=== PATIENT | female | born 2005 | race Caucasian/White ===

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

== ENCOUNTER 2024-07-07 19:55 | Emergency (ER) | payer SELFPAY ==
[2024-07-07 19:56] VITALS: BP 156/92; PULSE 96; RESP 18; TEMP 36.8; O2SAT 99; BMI 38.0
--- NOTE | 2024-07-07 20:19 | ED_ITS ---
<Statement entered by Kingsley Dumont MD - 07/07/24 23:06> I was consulted by the ANTWON, and we discussed the complexity of the problems being addressed. I approved the treatment and management plan for this patient's care in the emergency department, thus performing a substantive portion of the medical decision making. Kingsley Dumont MD Discharge Plan Disposition Patient Disposition: Home, Self-Care Prescriptions Prescriptions: New lidocaine 5 % adhesive patch,medicated 1 patch topical DAILY Qty: 30 0RF Rx Instructions: leave on most painful area for up to 12 hrs methocarbamol 750 mg tablet 750 mg PO Q6H PRN (Reason: muscle spasm) Qty: 20 0RF prednisone 50 mg tablet 50 mg PO DAILY 5 Days Qty: 5 0RF No Action citalopram [Celexa] 10 mg tablet 10 mg PO DAILY Qty: 30 2RF hydroxyzine HCl 10 mg tablet 10 mg PO TID PRN (Reason: anxiety) Qty: 30 0RF ondansetron 4 mg tablet,disintegrating 4 mg PO Q8H PRN (Reason: nausea and vomiting) Qty: 20 0RF Referrals Follow up/Referrals: Avinash Silva DO [Staff Physician] - See instructions Spencer Carbajal MD [Primary Care Provider] - See instructions Activity Restrictions/Add. Instructions Additional Instructions/Restrictions: Referred you to orthopedics for further evaluation of your left shoulder. Please return to the Emergency Department for any worsening signs or symptoms. Please follow-up with your PCP as scheduled. Clinical Impressions Clinical Impression: Arthralgia of left shoulder region Print Language Print Language: Icelandic Discharge ED Provider: Kingsley Dumont General Adult HPI General Chief complaint: Extremity Injury, Upper Stated complaint: Left shoulder pain,no injury Time Seen by Provider: 07/07/24 19:59 Mode of Arrival: Ambulatory Source of Information: Patient Limitations: No Limitations Description of Symptoms (Recalled from ER Triage Doc. by RN): Patient presents to ED with left shoulder pain that started last sunday. Patient denies any injury. Patient rates pain 7/10 at this time and has not taken any medication today for pain. History of Present Illness HPI narrative: Patient presents for evaluation of 5 days of left shoulder pain . Patient states she woke up last Sunday with pain in the area of her left shoulder. Patient actually indicates an area in the trapezius muscle and over the clavicle not actually at the shoulder joint itself. She states that it is been present ever since comes and goes and is usually worse in the morning better in the afternoon. She denies any repetitive tasks and denies trauma. Related Data Previous Rx's ?Medication ?Instructions ?Recorded citalopram 10 mg tablet (Celexa) 10 mg PO DAILY #30 tabs 10/02/23 hydroxyzine HCl 10 mg tablet 10 mg PO TID PRN anxiety #30 tabs 10/02/23 ondansetron 4 mg disintegrating 4 mg PO Q8H PRN nausea and 12/07/23 tablet vomiting #20 tabs lidocaine 5 % topical patch 1 patch topical DAILY #30 ea 07/07/24 methocarbamol 750 mg tablet 750 mg PO Q6H PRN muscle spasm #20 07/07/24 tabs prednisone 50 mg tablet 50 mg PO DAILY 5 days #5 tabs 07/07/24 Allergies Allergy/AdvReac Type Severity Reaction Status Date / Time No Known Allergies Allergy Verified 12/07/23 15:59 [facility] Disclaimer: The information contained in this section may have been updated after the patient was seen, as this information can be updated by other users. Medical History No significant family history Surgical History History of placement of ear tubes No significant past surgical history Social History Smoking Status: Never smoker second hand exposure: No alcohol intake: never substance use type: denies use current occupational status: employed Travel in the last 8 weeks: None housing: house marital status: single ROS Obtained: Yes Systems reviewed as appropriate & no additional complaints except as documented Physical Exam General General appearance: alert and in no apparent distress Respiratory Respiratory exam: Present normal lung sounds bilaterally Cardiovascular Cardiovascular exam: Present regular rate Neurological Exam Neurological exam: Present alert and oriented X3 Medical Decision Making Parminder Inquiry Pt receiving controlled substance: No Vital Signs: 07/07/24 19:56 07/07/24 21:46 Temperature 98.3 F 97.9 F Temperature Source Oral Oral Pulse Rate 89 Pulse Rate [Right Brachial] 96 H Respiratory Rate 18 19 Blood Pressure 119/88 Blood Pressure [Right Arm] 156/92 H Blood Pressure Mean [Right Arm] 113 Blood Pressure Source Automatic Cuff Blood Pressure Source [Right Arm] Automatic Cuff Blood Pressure Position Sitting Blood Pressure Position [Right Arm] Sitting 02 Sat by Pulse Oximetry 99 Oxygen Delivery Method Room Air Orders (Tests/Meds): ED MEDICATIONS Discontinued Medications Generic Name Dose Route Start Last Admin Trade Name Fuentes PRN Reason Stop Dose Admin Acetaminophen 1,000 mg 07/07/24 20:28 07/07/24 20:59 Acetaminophen 500mg Tab PO 07/07/24 20:29 1,000 mg ONCE ONE Administration Ibuprofen 800 mg 07/07/24 20:28 07/07/24 20:59 Ibuprofen 400 Mg Tablet PO 07/07/24 20:29 800 mg ONCE ONE Administration Lidocaine 1 each 07/07/24 20:28 07/07/24 20:59 Lidocaine 5% Transdermal Patch TP 07/07/24 20:29 1 each ONCE ONE Administration Methocarbamol 500 mg 07/07/24 20:28 07/07/24 20:59 Methocarbamol 500mg Tablet PO 07/07/24 20:29 500 mg ONCE ONE Administration ORDERS Category Date Time Status Chest XR 2 view (NOT portable) [XR chest 2V] Stat Exams 07/07/24 20:29 Completed XR shoulder LT min 2V Stat Exams 07/07/24 20:28 Completed Medical Decision Narrative: In summary patient is a 19-year-old female who presents to the emergency department for evaluation of left shoulder pain. Patient is hemodynamically stable upon arrival, afebrile. Physical exam is remarkable for tenderness to palpation over the trapezius muscle and in the biceps tendon groove without any evidence of erythema or crepitus at the shoulder joint proper, no evidence of trauma ecchymosis erythema edema in any of the areas. She has not tender to palpation in the midline cervical spine.. Differential diagnosis includes cervicalgia versus muscle spasm versus biceps tendinitis. Initial workup will be conducted with plain film x-rays. I actually initially ordered hematologic labs however after reinterview the patient and she explained how she sleeps with her arm above her head and face down and after resolution of her symptoms after initial intervention I deferred on laboratory vesication.. Initial interventions include Tylenol Motrin Decadron Robaxin. Initial workup reviewed by me no acute bony abnormality.. Given this patient is appropriate for discharge with prescription sent for steroids lidocaine patches Robaxin and a referral to orthopedics for follow-up. Critical Care Critical Care Time Critical Care Time: No
--- NOTE | 2024-07-07 20:28 | XR_ITS ---
PROCEDURE INFORMATION: Exam: XR Left Shoulder Exam date and time: 07/07/2024 8:29 PM Age: 19 years old Clinical indication: Pain; Shoulder; Left; Additional info: Left shoulder pain TECHNIQUE: Imaging protocol: Radiologic exam of the left shoulder. Views: 2 or more views. COMPARISON: CR XR CHEST 2V 07/07/2024 8:27 PM FINDINGS: Bones/joints: Normal. No acute fracture identified. Soft tissues: Normal. IMPRESSION: No acute findings.
--- NOTE | 2024-07-07 20:29 | XR_ITS ---
PROCEDURE INFORMATION: Exam: XR Chest Exam date and time: 07/07/2024 8:27 PM Age: 19 years old Clinical indication: Pain; Chest pressure; Additional info: Left upper chest pain TECHNIQUE: Imaging protocol: Radiologic exam of the chest. Views: 2 views. COMPARISON: No relevant prior studies available. FINDINGS: Lungs: Small calcified nodule in the inferolateral right lung compatible with granuloma. Lung ivey otherwise clear. Pleural spaces: Unremarkable. No pleural effusion. No pneumothorax. Heart/Mediastinum: Unremarkable. No cardiomegaly. Bones/joints: Unremarkable. IMPRESSION: No acute abnormality.
[2024-07-07] MEDS: IBUPROFEN 400 MG TABLET 800 MG PO (20:59)
[2024-07-07] MEDS: ACETAMINOPHEN 500MG TAB 1000 MG PO (20:59)
[2024-07-07] MEDS: LIDOCAINE 5% TRANSDERMAL PATCH 1 EACH TP (20:59)
[2024-07-07] MEDS: METHOCARBAMOL 500MG TABLET 500 MG PO (20:59)
[2024-07-07 21:46] VITALS: BP 119/88; PULSE 89; RESP 19; TEMP 36.6; O2SAT 98
== END 2024-07-07 21:49 | disposition home or self-care (01) ==
PROVIDERS: Emergency Provider Emergency Medicine; PCP Internal Medicine Adolescent Medicine
DX: M25.512 Pain in left shoulder (principal)
CPT/HCPCS: 71046; 73030; 99283

== ENCOUNTER 2024-08-10 16:55 | Emergency (ER) | payer OTHER, SELFPAY ==
[2024-08-10 18:10] VITALS: BP 116/81; PULSE 85; RESP 20; TEMP 37.2; O2SAT 100; BMI 42.0
[2024-08-10] MEDS: TET/DIPHTH/PERT-ADULT 0.5ML SYRINGE 0.5 ML IM (18:22)
--- NOTE | 2024-08-10 18:29 | EXP.UTC ---
Discharge Plan Disposition Patient Disposition: Home, Self-Care Condition: Good Prescriptions Prescriptions: New amoxicillin-pot clavulanate 875-125 mg Tablet 1 tab PO Q12H 7 Days Qty: 14 0RF No Action citalopram [Celexa] 10 mg tablet 10 mg PO DAILY Qty: 30 2RF hydroxyzine HCl 10 mg tablet 10 mg PO TID PRN (Reason: anxiety) Qty: 30 0RF Referrals Follow up/Referrals: Gerson Abdullahi MD [Primary Care Provider] - See instructions Activity Restrictions/Add. Instructions Additional Instructions/Restrictions: CLean bite with antibacterial soap and water Take antibiotics as prescribed and make sure to finish all antibiotics Follow up with your Family Doctor if no improvement Return if needed Clinical Impressions Clinical Impression: Cat bite Instructions Patient Instructions: DI for Cat Bite, Amoxicillin and Clavulanic Acid Print Language Print Language: Irish Discharge ED Provider[place] Wh[place] [facility] [place] General Stated complaint: AO 10- biten by cat,right hand pain and swollen Mode of Arrival: Ambulatory Source of Information: Patient Limitations: No Limitations Time Seen by Provider: 08/10/24 18:29 Description of Symptoms (Recalled from Triage Doc. by RN): PATIENT C/O CAT BITE TO RIGHT HAND YESTERDAY. PATIENT IS NOT UP TO DATE ON TDAP. HEENT Symptoms (Recalled from RN notes): No Resp Symptoms (Recalled from RN notes): No Skin Symptoms (Recalled from RN notes): Yes MS Symptoms (Recalled from RN notes): No Functional Status (Recalled from RN notes): WNL History of Present Illness Provider Complaint: Patient states that she found a stray kitten and picked it up and it bite her on her right index finger States she is not up to date on tetanus and thinks it may be getting infected it is red and warm where it bite her Related Data Previous Rx's ?Medication ?Instructions ?Recorded citalopram 10 mg tablet (Celexa) 10 mg PO DAILY #30 tabs 10/02/23 hydroxyzine HCl 10 mg tablet 10 mg PO TID PRN anxiety #30 tabs 10/02/23 amoxicillin 875 mg-potassium 1 tab PO Q12H 7 days #14 tabs 08/10/24 clavulanate 125 mg tablet Allergies Allergy/AdvReac Type Severity Reaction Status Date / Time No Known Allergies Allergy Verified 12/07/23 15:59 Worker's Comp Is this a Worker's Comp case?: No [facility] Disclaimer: The information contained in this section may have been updated after the patient was seen, as this information can be updated by other users. Medical History (Updated 08/10/24 @ 18:39 by Tricia Whalen APRN) Anxiety No significant family history Surgical History (Updated 08/10/24 @ 18:17 by Madelyn Hill RN) History of placement of ear tubes Social History Smoking Status: Never smoker second hand exposure: No alcohol intake: never substance use type: denies use current occupational status: employed Travel in the last 8 weeks: None housing: house marital status: single ROS Obtained: Yes All systems reviewed & no additional complaints except as documented and Yes Systems reviewed as appropriate & no additional complaints except as documented Constitutional Constitutional: Reports system reviewed and no additional complaints, except as documented and Reports as per HPI ENT Ears, Nose, Mouth, and Throat: Reports system reviewed and no additional complaints, except as documented and Reports as per HPI Cardiovascular Cardiovascular: Reports system reviewed and no additional complaints, except as documented and Reports as per HPI Respiratory Respiratory: Reports system reviewed and no additional complaints, except as documented and Reports as per HPI Gastrointestinal Gastrointestingal: Reports system reviewed and no additional complaints, except as documented and as per HPI Musculoskeletal Musculoskeletal: Reports system reviewed and no additional complaints, except as documented and Reports as per HPI Integumentary/Breasts Skin/Breast: Reports system reviewed and no additional complaints, except as documented, Reports as per HPI and Reports other (redness and warmth right index finger after cat bite yesterday) Physical Exam General General appearance: alert and in no apparent distress ENT ENT exam: Present mucous membranes moist Respiratory Respiratory exam: Present normal lung sounds bilaterally; Absent respiratory distress or wheezes Cardiovascular Cardiovascular exam: Present regular rate, normal rhythm and normal heart sounds Neurological Exam Neurological exam: Present alert, oriented X3 and normal gait Skin Skin exam: Present other (redness, warmth and mild swelling from cat bite on right index finger) Medical Decision Making Medical Records Screening: Per USPSTF and CDC recommendations, given the prevalence of disease in our region, it is our hospital?s policy to screen for HIV and viral Hepatitis for all patients aged 18 and over and those with ongoing risk factors. Parminder Inquiry Pt receiving controlled substance: No Parminder was queried for this patient: No Vital Signs: 08/10/24 18:10 Temperature 98.9 F Temperature Source Oral Pulse Rate [Left Brachial] 85 Respiratory Rate 20 Blood Pressure [Left Arm] 116/81 Blood Pressure Mean [Left Arm] 92 Blood Pressure Source [Left Arm] Automatic Cuff Blood Pressure Position [Left Arm] Sitting 02 Sat by Pulse Oximetry 100 Oxygen Delivery Method Room Air Orders (Tests/Meds): ED MEDICATIONS Generic Name Dose Route Start Last Admin Trade Name Freq PRN Reason Stop Dose Admin Tetanus/Reduced Diphtheria/Acell Pertussis 0.5 ml 08/10/24 18:17 08/10/24 18:22 Tet/Diphth/Pert-Adult 0.5ml Syringe IM 08/10/24 18:18 0.5 ml .ONCE ONE Administration
[2024-08-10 18:42] VITALS: BP 116/81; PULSE 85; RESP 20; TEMP 37.2; O2SAT 100
[2024-08-10] MEDS: AMOXICILLIN/POT CLAVULAN 500MG TABLET 1 EACH PO (18:48)
== END 2024-08-10 18:48 | disposition home or self-care (01) ==
PROVIDERS: Emergency Provider Nurse Practitioner; PCP Student in an Organized Health Care Education/Training Program
DX: S61.451A Open bite of right hand, initial encounter (principal); W55.01XA Bitten by cat, initial encounter
CPT/HCPCS: 90471; 90472; 90715; 99213; G0381

== ENCOUNTER 2024-08-15 08:41 | Outpatient (CLI) | payer OTHER, SELFPAY ==
[2024-08-15] MEDS: RABIES IMMUNE GLOBULIN/PF 300 UNIT/ML VIAL IM (09:15)
[2024-08-15] MEDS: RABIES VACCINE (PCEC)/PF 2.5 UNIT VIAL IM (09:20)
[2024-08-15 09:25] VITALS: BP 120/80; PULSE 86; RESP 18; O2SAT 100
== END 2024-08-15 09:25 | disposition home or self-care (01) ==
LOC: INF 08:44
PROVIDERS: PCP Nurse Practitioner Family; Visit Provider Family Medicine
DX: Z29.14 Encounter for prophylactic rabies immune globulin (principal)
CPT/HCPCS: 90375; 90675; 96372

== ENCOUNTER 2024-08-18 08:15 | Outpatient (CLI) | payer OTHER, SELFPAY ==
[2024-08-18] MEDS: RABIES VACCINE (PCEC)/PF 2.5 UNIT VIAL IM (08:24)
[2024-08-18 08:26] VITALS: BP 135/81; PULSE 86; RESP 18; O2SAT 97
== END 2024-08-18 08:26 | disposition home or self-care (01) ==
LOC: INF 08:16
PROVIDERS: PCP Family Medicine; Visit Provider Family Medicine
DX: Z29.14 Encounter for prophylactic rabies immune globulin (principal)
CPT/HCPCS: 90675; 96372

== ENCOUNTER 2024-08-22 08:16 | Outpatient (CLI) | payer OTHER, SELFPAY ==
[2024-08-22 08:27] VITALS: BP 148/72; PULSE 84; RESP 20; TEMP 36.8; O2SAT 98
[2024-08-22] MEDS: RABIES VACCINE (PCEC)/PF 2.5 UNIT VIAL IM (08:27)
== END 2024-08-22 08:52 | disposition home or self-care (01) ==
LOC: INF 08:17
PROVIDERS: PCP Nurse Practitioner Family; Visit Provider Family Medicine
DX: Z29.14 Encounter for prophylactic rabies immune globulin (principal)
CPT/HCPCS: 90675; 96372

== ENCOUNTER 2024-08-29 08:17 | Outpatient (CLI) | payer OTHER, SELFPAY ==
[2024-08-29] MEDS: RABIES VACCINE (PCEC)/PF 2.5 UNIT VIAL IM (08:39)
[2024-08-29 08:41] VITALS: BP 131/82; PULSE 92; RESP 18; O2SAT 98
== END 2024-08-29 08:41 | disposition home or self-care (01) ==
LOC: INF 08:18
PROVIDERS: PCP Nurse Practitioner Family; Visit Provider Family Medicine
DX: Z29.14 Encounter for prophylactic rabies immune globulin (principal)
CPT/HCPCS: 90675; 96372

== ENCOUNTER 2024-09-21 18:52 | Emergency (ER) | payer OTHER, SELFPAY ==
[2024-09-21 19:10] VITALS: BP 141/96; PULSE 89; RESP 19; TEMP 37; O2SAT 100; BMI 45.1
--- NOTE | 2024-09-21 19:27 | EXP.UTC ---
Discharge Plan Disposition Patient Disposition: Home, Self-Care Condition: Good Prescriptions Prescriptions: New azithromycin [Zithromax Z-Nathaniel] 250 mg tablet See Rx Instructions .ROUTE .COMPLEX 5 Days Qty: 6 0RF Rx Instructions: For 250 mg dose pack: take 500 mg today (day 1), then 250 mg for 4 days (days 2-5) methylprednisolone [Medrol (Nathaniel)] 4 mg tablets,dose pack See Rx Instructions .Route .COMPLEX 6 Days Qty: 21 0RF Rx Instructions: taper pack; [id number]-[id number] [Bromfed DM] 2-30-10 mg/5 mL syrup 10 ml PO Q6H PRN (Reason: cold symptoms) Qty: 200 0RF Referrals Follow up/Referrals: Helen August APRN [Primary Care Provider] - See instructions Activity Restrictions/Add. Instructions Additional Instructions/Restrictions: Start antibiotic today. Be sure to complete entire prescription even if feeling better Monitor temp. Tylenol every 4 hours as needed and / or ibuprofen every 6 hours as needed ( As long as your primary care physician has told you that it ok to take both. For fever/aches/pains ER if no less than 101 despite Tylenol or Motrin Humidifier/vaporizer or hot steamy shower Bromfed may cause drowsiness. Know how it effects you (your child) before driving, caring for small child, or sending your child to school. Not other antihistamines/allergy medications while taking bromfed *Start steroid today. Helps with inflammation therefore, cough and wheezing. Follow directions on the package. Reviewed side effects. Patient reports taking them before. Follow up IMMEDIATELY for new or worsening of symptoms OR no noticeable improvement over the next 48-72 hours. 911 immediately for any life threatening symptoms such as chest pain or difficulty breathing Clinical Impressions Clinical Impression: Bronchitis Instructions Patient Instructions: Acute Bronchitis, Cough, Azithromycin Print Language Print Language: Botswanan Discharge ED Provider: Tricia Whalen [facility] [place] H[place] General Stated complaint: Cough,CISNEROS,horseness Mode of Arrival: Ambulatory Source of Information: Patient Limitations: No Limitations Time Seen by Provider: 09/21/24 19:27 Description of Symptoms (Recalled from Triage Doc. by RN): PATIENT C/O COUGH, LOSS OF VOICE, BODY ACHES, AND HURTING IN CHEST WITH COUGH SINCE SUNDAY HEENT Symptoms (Recalled from RN notes): Yes Resp Symptoms (Recalled from RN notes): Yes Skin Symptoms (Recalled from RN notes): No MS Symptoms (Recalled from RN notes): No Functional Status (Recalled from RN notes): WNL History of Present Illness Provider Complaint: Patient states that she was sick about a week ago and it got better but then came back States that she has been having sinus congestion and drainage, cough, chest congestion, hoarseness and not feeling well States today her throat was sore and irritated from all the coughing so this evening she came in to get checked Related Data Previous Rx's ?Medication ?Instructions ?Recorded azithromycin 250 mg tablet See Rx Instructions PO .COMPLEX 5 09/21/24 (Zithromax Z-Nathaniel) days #6 tabs yjtrlkcfjjrcbem-vdfqsjmeozehskj-SI 10 ml PO Q6H PRN cold symptoms 09/21/24 2 mg-30 mg-10 mg/5 mL oral syrup #200 mL (Bromfed DM) methylprednisolone 4 mg tablets in See Rx Instructions .Route 09/21/24 a dose pack (Medrol (Nathaniel)) .COMPLEX 6 days #21 tabs Allergies Allergy/AdvReac Type Severity Reaction Status Date / Time No Known Allergies Allergy Verified 08/14/24 09:01 Worker's Comp Is this a Worker's Comp case?: No [facility] Disclaimer: The information contained in this section may have been updated after the patient was seen, as this information can be updated by other users. Medical History Anxiety No significant family history Surgical History History of placement of ear tubes Social History Smoking Status: Never smoker second hand exposure: No alcohol intake: never substance use type: denies use current occupational status: employed housing: house marital status: single ROS Obtained: Yes All systems reviewed & no additional complaints except as documented and Yes Systems reviewed as appropriate & no additional complaints except as documented Constitutional Constitutional: Reports system reviewed and no additional complaints, except as documented, Reports as per HPI and Reports headache(s) ENT Ears, Nose, Mouth, and Throat: Reports system reviewed and no additional complaints, except as documented, Reports as per HPI, Reports headache(s), Reports nasal congestion and Reports sinus pressure Cardiovascular Cardiovascular: Reports system reviewed and no additional complaints, except as documented and Reports as per HPI Respiratory Respiratory: Reports system reviewed and no additional complaints, except as documented, Reports as per HPI, Reports chest congestion and Reports cough Gastrointestinal Gastrointestingal: Reports system reviewed and no additional complaints, except as documented and as per HPI Genitourinary Female Genitourinary: Reports system reviewed and no additional complaints, except as documented and Reports as per HPI Neurologic Neurologic: Reports headache(s) Physical Exam General General appearance: alert and in no apparent distress ENT ENT exam: Present mucous membranes moist Expanded ENT Exam Nose exam: Present sinus tenderness Throat exam: Present other (PND noted with mild pharyngeal erythema) Respiratory Respiratory exam: Present normal lung sounds bilaterally; Absent respiratory distress or wheezes Cardiovascular Cardiovascular exam: Present regular rate, normal rhythm and normal heart sounds Abdominal Exam Abdominal exam: Present soft and normal bowel sounds; Absent distention or tenderness Neurological Exam Neurological exam: Present alert, oriented X3 and normal gait Medical Decision Making Medical Records Screening: Per USPSTF and CDC recommendations, given the prevalence of disease in our region, it is our hospital?s policy to screen for HIV and viral Hepatitis for all patients aged 18 and over and those with ongoing risk factors. Parminder Inquiry Pt receiving controlled substance: No Parminder was queried for this patient: No Vital Signs: 09/21/24 19:10 Temperature 98.6 F Temperature Source Oral Pulse Rate [Left Brachial] 89 Respiratory Rate 19 Blood Pressure [Left Arm] 141/96 H Blood Pressure Mean [Left Arm] 111 Blood Pressure Source [Left Arm] Automatic Cuff Blood Pressure Position [Left Arm] Sitting 02 Sat by Pulse Oximetry 100 Oxygen Delivery Method Room Air Lab Data Lab results reviewed: Yes I reviewed the patient's lab results.
[2024-09-21 19:30] VITALS: BP 141/96; PULSE 89; RESP 19; TEMP 37; O2SAT 100
[2024-09-21 19:34] LABS: UTC Pregnancy Test, Urine Negative (Negative)
== END 2024-09-21 19:36 | disposition home or self-care (01) ==
PROVIDERS: Emergency Provider Nurse Practitioner; PCP Nurse Practitioner Family
DX: J20.9 Acute bronchitis, unspecified (principal)
CPT/HCPCS: 81025; 99213; G0381

== ENCOUNTER 2024-11-08 17:56 | Emergency (ER) | payer OTHER, SELFPAY ==
--- NOTE | 2024-11-08 18:00 | XR_ITS ---
PROCEDURE INFORMATION: Exam: XR Right Foot Exam date and time: 11/08/2024 5:59 PM Age: 19 years old Clinical indication: Pain; Foot; Right; Additional info: Fell on ice TECHNIQUE: Imaging protocol: Radiologic exam of the right foot. Views: 1 or 2 views. COMPARISON: No relevant prior studies available. FINDINGS: Bones/joints: Normal. Soft tissues: Normal. IMPRESSION: No acute findings.
--- NOTE | 2024-11-08 18:00 | XR_ITS ---
PROCEDURE INFORMATION: Exam: XR Right Ankle Exam date and time: 11/08/2024 6:02 PM Age: 19 years old Clinical indication: Injury or trauma; Fall; Sprain or strain; Ankle; Right; Additional info: Fell on ice TECHNIQUE: Imaging protocol: Radiologic exam of the right ankle. Views: 1 or 2 views. COMPARISON: CR Foot R 11/08/2024 5:59 PM FINDINGS: Bones/joints: Multiple views were obtained. The osseous structures appear intact with no evidence of acute fracture, dislocation, or malalignment. Joint spaces are preserved. No abnormal bone density or destructive lesions are noted. Soft tissues: Soft tissue swelling is observed, and further clinical correlation is advised. IMPRESSION: At the time of imaging, the skeletal radiograph demonstrates no acute osseous abnormalities but does show soft tissue swelling.
[2024-11-08 18:06] VITALS: BP 141/89; PULSE 100; RESP 20; TEMP 36.7; O2SAT 99; BMI 43.2
--- NOTE | 2024-11-08 18:13 | PC.NURSE ---
PT IS AT XRAY
--- NOTE | 2024-11-08 18:16 | PC.NURSE ---
PT ARRIVED BACK TO ROOM FROM XRAY
--- NOTE | 2024-11-08 18:21 | EXP.UTC ---
Discharge Plan Disposition Patient Disposition: Home, Self-Care Condition: Good Prescriptions Prescriptions: New ibuprofen 800 mg tablet 800 mg PO TID PRN (Reason: pain) Qty: 30 0RF Referrals Follow up/Referrals: Helen August APRN [Primary Care Provider] - See instructions Activity Restrictions/Add. Instructions Additional Instructions/Restrictions: Rest, ice, compression, and elevation of right ankle. Take Ibuprofen/Tylenol as needed for pain. If symptoms persist or worsen, follow up with PCP. Clinical Impressions Clinical Impression: Acute right ankle pain Instructions Patient Instructions: How To Perform RICE (Rest, Ice, Compress, Elevate), DI for Ankle Pain Print Language Print Language: Romanian Discharge ED Provider: Soledad Santa [facility] – [place] HPI General Stated complaint: AO01/10 RT ankle inj Mode of Arrival: Ambulatory Source of Information: Patient Time Seen by Provider: 11/08/24 18:15 Description of Symptoms (Recalled from Triage Doc. by RN): HURT RIGHT ANKLE FALLING ON ICE, HURTS TO APPLY PRESSURE HEENT Symptoms (Recalled from RN notes): No Resp Symptoms (Recalled from RN notes): No Skin Symptoms (Recalled from RN notes): No MS Symptoms (Recalled from RN notes): Yes Functional Status (Recalled from RN notes): PAIN WITH WALKING History of Present Illness Provider Complaint: Pt reports that she was coming down the stairs and she slipped and fell injuring her right ankle. She reports that she has had to work on it all day and it has hurt to put pressure on her foot. Related Data Previous Rx's ?Medication ?Instructions ?Recorded ibuprofen 800 mg tablet 800 mg PO TID PRN pain #30 tabs 11/08/24 Allergies Allergy/AdvReac Type Severity Reaction Status Date / Time No Known Allergies Allergy Verified 08/14/24 09:01 Worker's Comp Is this a Worker's Comp case?: No [facility] Disclaimer: The information contained in this section may have been updated after the patient was seen, as this information can be updated by other users. Medical History Anxiety No significant family history Surgical History History of placement of ear tubes Social History (Updated 09/21/24 @ 19:32 by Tricia Whalen APRN) Smoking Status: Never smoker second hand exposure: No alcohol intake: never substance use type: denies use current occupational status: employed Travel in the last 8 weeks: None housing: house marital status: single Have you lived/traveled outside [place] in past 30 days?: No Contact w/someone who lives/traveled outside US past 30 days?: No Exposure to someone with infectious disease in past 14 days?: No Do you have a fever (greater than 100.4 F or 38 C)?: No Have you tested positive for COVID-19: No Exposed to someone with COVID-19 in past 14 days?: No Do you have a sore throat?: No Do you have a cough?: No Do you have any weakness?: No Do you have any diarrhea?: No Are you experiencing any unusual bleeding?: No Do you have any muscle aches/pain?: No Do you have any abdominal pain?: No Are you experiencing loss of taste or smell?: No ROS Obtained: Yes All systems reviewed & no additional complaints except as documented Constitutional Constitutional: Reports system reviewed and no additional complaints, except as documented Eyes Eyes: Reports system reviewed and no additional complaints, except as documented ENT Ears, Nose, Mouth, and Throat: Reports system reviewed and no additional complaints, except as documented Cardiovascular Cardiovascular: Reports system reviewed and no additional complaints, except as documented Respiratory Respiratory: Reports system reviewed and no additional complaints, except as documented Gastrointestinal Gastrointestingal: Reports system reviewed and no additional complaints, except as documented Genitourinary Female Genitourinary: Reports system reviewed and no additional complaints, except as documented Musculoskeletal Musculoskeletal: Reports system reviewed and no additional complaints, except as documented, Reports abnormal gait, Reports arthralgias and Reports joint swelling Integumentary/Breasts Skin/Breast: Reports system reviewed and no additional complaints, except as documented Neurologic Neurologic: Reports system reviewed and no additional complaints, except as documented and Reports abnormal gait Endocrine Endocrine: Reports system reviewed and no additional complaints, except as documented Hematologic/Lymphatic Henatologic/Lymphatic: Reports system reviewed and no additional complaints, except as documented Allergic/Immunologic Allergic/Immunologic: Reports system reviewed and no additional complaints, except as documented Physical Exam General General appearance: alert and in no apparent distress Head Head exam: atraumatic and normocephalic Eye Eye exam: Present normal appearance ENT ENT exam: Present normal exam Neck Neck exam: Present normal inspection Chest Chest inspection: Present normal inspection and symmetric chest wall rise Respiratory Respiratory exam: Present normal lung sounds bilaterally Cardiovascular Cardiovascular exam: Present regular rate, normal rhythm and normal heart sounds Abdominal Exam Abdominal exam: Present soft Extremities Exam Extremities exam: Present tenderness, normal capillary refill and joint swelling Expanded Lower Extremity Exam Right: Hip/Pelvis exam: Present normal inspection Upper leg exam: Present normal inspection Knee exam: Present normal inspection Lower leg exam: Present normal inspection Ankle exam: Present tenderness, swelling, abrasion and other (pain greater with flexion.) Foot/toe exam: Present tenderness (on top of foot) and abrasion (midline top of foot.) Neurovascular/Tendon exam: Present normal capillary refill Gait: observed and limited by pain Back Exam Back exam: Present normal inspection Neurological Exam Neurological exam: Present alert and oriented X3 Psychiatric Psychiatric exam: Present normal affect and normal mood Skin Skin exam: Present warm, dry and intact Lymphatic Lymphatic Findings: no adenopathy Medical Decision Making Medical Records Screening: Per USPSTF and CDC recommendations, given the prevalence of disease in our region, it is our hospital?s policy to screen for HIV and viral Hepatitis for all patients aged 18 and over and those with ongoing risk factors. Parminder Inquiry Pt receiving controlled substance: No Parminder was queried for this patient: No Vital Signs: 11/08/24 18:06 Temperature 98.0 F Temperature Source Oral Pulse Rate [Left Radial] 100 H Respiratory Rate 20 Blood Pressure [Left Arm] 141/89 H Blood Pressure Mean [Left Arm] 106 02 Sat by Pulse Oximetry 99 Orders (Tests/Meds): ORDERS Category Date Time Status Ankle XR - Right 2 Views [XR ankle RT 2V] Stat Exams 11/08/24 18:00 Taken XR foot RT 2V Stat Exams 11/08/24 18:00 Taken Procedures Miscellaneous Procedure Procedure Performed: Dimas wrap applied to right ankle. Copies of x-ray results provided.
[2024-11-08 19:12] VITALS: BP 141/89; PULSE 100; RESP 20; TEMP 36.7
== END 2024-11-08 19:17 | disposition home or self-care (01) ==
PROVIDERS: Emergency Provider Nurse Practitioner Family; PCP Nurse Practitioner Family
DX: M25.571 Pain in right ankle and joints of right foot (principal)
CPT/HCPCS: 73600; 73620; 99213; G0381

== ENCOUNTER 2024-12-03 16:24 | Emergency (ER) | payer OTHER, SELFPAY ==
[2024-12-03 16:50] VITALS: BP 142/90; PULSE 116; RESP 19; TEMP 37.7; O2SAT 98; BMI 43.5
[2024-12-03 16:56] LABS: Coronavirus 19, PCR Not Detected (NotDetected); Influenza B, PCR Not Detected (NotDetected)
--- NOTE | 2024-12-03 17:05 | EXP.UTC ---
Discharge Plan Disposition Patient Disposition: Home, Self-Care Condition: Good Prescriptions Prescriptions: No Action ibuprofen 800 mg tablet 800 mg PO TID PRN (Reason: pain) Qty: 30 0RF Referrals Follow up/Referrals: Helen August APRN [Primary Care Provider] - See instructions Activity Restrictions/Add. Instructions Additional Instructions/Restrictions: *Monitor Temp, Over the counter Motrin or Tylenol as directed/as needed Tylenol every 4 hours and Motrin every 6 hours (as long as your family doctor has told you that you can take it) for fever or pain. and straight to ER if unable to lower temp less than 101.0 after medication given *Warm salt water gargles may help to soothe the throat *Throat Lozenges? *Warm fluids like tea with honey may help to soothe the throat? *Sleep elevated *Humidifier/Vaporizer Follow up IMMEDIATELY for new or worsening symptoms or no Noticeable improvement over the next 48-72 hours. 911 for difficulty breathing or swallowing You were tested for today for Rapid COVID19, and Influenza A&B,?your test result should be back in the next few hours and be available on the [facility] Clinical Impressions Clinical Impression: Viral syndrome Stand Alone Forms Stand Alone Forms: Work/School Release Instructions Patient Instructions: DI for Viral Syndrome Print Language Print Language: Romanian Discharge ED Provider: Tricia Whalen [facility] [place] HPI General Stated complaint: exp=covid, flu , cough Mode of Arrival: Ambulatory Source of Information: Patient Limitations: No Limitations Time Seen by Provider: 12/03/24 17:05 Description of Symptoms (Recalled from Triage Doc. by RN): PATIENT C/O HEADACHE, SOA, COUGH, FEVER AND BODY ACHES SINCE YESTERDAY. PATIENT REPORTS EXPOSURE TO FLU AND COVID HEENT Symptoms (Recalled from RN notes): Yes Resp Symptoms (Recalled from RN notes): Yes Skin Symptoms (Recalled from RN notes): No MS Symptoms (Recalled from RN notes): No Functional Status (Recalled from RN notes): WNL History of Present Illness Provider Complaint: Patient states that she has been exposed to COVID and flu and yesterday she started having symptoms States that she has been having fever, chills, headache, nasal congestion and body aches so today she came in to get tested Related Data Previous Rx's ?Medication ?Instructions ?Recorded ibuprofen 800 mg tablet 800 mg PO TID PRN pain #30 tabs 11/08/24 Allergies Allergy/AdvReac Type Severity Reaction Status Date / Time No Known Allergies Allergy Verified 08/14/24 09:01 Worker's Comp Is this a Worker's Comp case?: No [facility] Disclaimer: The information contained in this section may have been updated after the patient was seen, as this information can be updated by other users. Medical History Anxiety No significant family history Surgical History History of placement of ear tubes Social History (Updated 09/21/24 @ 19:32 by Tricia Whalen APRN) Smoking Status: Never smoker second hand exposure: No alcohol intake: never substance use type: denies use current occupational status: employed Travel in the last 8 weeks: None housing: house marital status: single Have you lived/traveled outside [place] in past 30 days?: No Contact w/someone who lives/traveled outside US past 30 days?: No Exposure to someone with infectious disease in past 14 days?: Yes Do you have a fever (greater than 100.4 F or 38 C)?: No Have you tested positive for COVID-19: No Exposed to someone with COVID-19 in past 14 days?: Yes Do you have a sore throat?: No Do you have a cough?: Yes Do you have any weakness?: No Do you have any diarrhea?: No Are you experiencing any unusual bleeding?: No Do you have any muscle aches/pain?: No Do you have any abdominal pain?: No Are you experiencing loss of taste or smell?: No ROS Obtained: Yes All systems reviewed & no additional complaints except as documented and Yes Systems reviewed as appropriate & no additional complaints except as documented Constitutional Constitutional: Reports system reviewed and no additional complaints, except as documented, Reports as per HPI, Reports body ache, Reports chills, Reports fever(s) and Reports headache(s) ENT Ears, Nose, Mouth, and Throat: Reports system reviewed and no additional complaints, except as documented, Reports as per HPI, Reports headache(s), Reports nasal congestion and Reports nasal discharge Cardiovascular Cardiovascular: Reports system reviewed and no additional complaints, except as documented, Reports as per HPI and Denies chest pain Respiratory Respiratory: Reports system reviewed and no additional complaints, except as documented, Reports as per HPI and Reports cough Gastrointestinal Gastrointestingal: Reports system reviewed and no additional complaints, except as documented and as per HPI Neurologic Neurologic: Reports headache(s) Physical Exam General General appearance: alert and in no apparent distress ENT ENT exam: Present mucous membranes moist Expanded ENT Exam Nose exam: Absent sinus tenderness Throat exam: Present normal inspection Respiratory Respiratory exam: Present normal lung sounds bilaterally; Absent respiratory distress or wheezes Cardiovascular Cardiovascular exam: Present regular rate, normal rhythm and tachycardia Abdominal Exam Abdominal exam: Present soft and normal bowel sounds; Absent distention or tenderness Neurological Exam Neurological exam: Present alert, oriented X3 and normal gait Medical Decision Making Medical Records Screening: Per USPSTF and CDC recommendations, given the prevalence of disease in our region, it is our hospital?s policy to screen for HIV and viral Hepatitis for all patients aged 18 and over and those with ongoing risk factors. Aprminder Inquiry Pt receiving controlled substance: No Parminder was queried for this patient: No Vital Signs: 12/03/24 16:50 Temperature 99.8 F H Temperature Source Oral Pulse Rate [Left Brachial] 116 H Respiratory Rate 19 Blood Pressure [Left Arm] 142/90 H Blood Pressure Mean [Left Arm] 107 Blood Pressure Source [Left Arm] Automatic Cuff Blood Pressure Position [Left Arm] Sitting 02 Sat by Pulse Oximetry 98 Oxygen Delivery Method Room Air Orders (Tests/Meds): ORDERS Category Date Time Status Rapid PCR Covid and Flu A/B Stat Lab 12/03/24 16:42 Received
[2024-12-03 17:10] VITALS: BP 142/90; PULSE 116; RESP 19; TEMP 37.7; O2SAT 98
[2024-12-03 17:30] LABS: Influenza A, PCR Detected (NotDetected)
== END 2024-12-03 17:14 | disposition home or self-care (01) ==
PROVIDERS: Emergency Provider Nurse Practitioner; PCP Nurse Practitioner Family
DX: B34.9 Viral infection, unspecified (principal); J10.1 Influenza due to other identified influenza virus with other respiratory manifestations
CPT/HCPCS: 87636; 99213; G0381

== ENCOUNTER 2025-01-27 11:06 | Outpatient (CLI) | payer OTHER, SELFPAY ==
[2025-01-27 12:51] LABS: HCG,Quantitative < 2 mIU/ml (0-5.42)
[2025-01-28 08:13] LABS: Progesterone <0.1 ng/mL (.)
== END 2025-01-27 23:59 | disposition home or self-care (01) ==
LOC: LAB 11:07
PROVIDERS: PCP Nurse Practitioner Family; Visit Provider Obstetrics & Gynecology
DX: Z32.01 Encounter for pregnancy test, result positive (principal)
CPT/HCPCS: 36415; 84144; 84702

== ENCOUNTER 2025-02-25 07:51 | Emergency (ER) | payer OTHER, SELFPAY ==
[2025-02-25 07:59] VITALS: BP 152/102; PULSE 119; RESP 20; TEMP 36.8; O2SAT 98; BMI 42.3
[2025-02-25 08:01] VITALS: BP 147/107; PULSE 123; O2SAT 98
--- NOTE | 2025-02-25 08:12 | ED_ITS ---
Discharge Plan Disposition Patient Disposition: Home, Self-Care Chief Complaint: Urogenital-Female Prescriptions Prescriptions: New norethindrone-e.estradiol-iron [ (28)] 1.5 mg-30 mcg (21)/75 mg (7) tablet 1 tab PO DAILY Qty: 84 0RF No Action ibuprofen 800 mg tablet 800 mg PO TID PRN (Reason: pain) Qty: 30 0RF Referrals Follow up/Referrals: Helen August APRN [Primary Care Provider] - See instructions Activity Restrictions/Add. Instructions Additional Instructions/Restrictions: Combined control pill as prescribed. Call your family doctor to establish care for this visit to the emergency department and schedule follow-up within 48 hours to ensure improvement. If you have any worsening of your condition or any other concerning signs or symptoms, return to the emergency department or your primary care doctor for further evaluation. Call to see if you can get appointment moved up with Dr. Vines. Clinical Impressions Clinical Impression: Abnormal vaginal bleeding Instructions Patient Instructions: DI for Urinary Tract Infection (UTI), DI for Urinary Tract Infection in Children Print Language Print Language: Albanian Discharge ED Provider: Juan Sims General Adult HPI General Chief complaint: Urogenital-Female Stated complaint: heavy vaginal bleeding, passing clots Time Seen by Provider: 02/25/25 07:58 Mode of Arrival: Ambulatory Source of Information: Patient Description of Symptoms (Recalled from ER Triage Doc. by RN): patient presents to ED with lower abd pain and heavy bleeding that started last night. Patient states her menstrual cycle has been very irregular. Patient states she has went through 1 pad. Patient reports negative preg test 2 weeks ago. Patient takes no control. History of Present Illness HPI narrative: Please note that above description of symptoms, in this electronic medical record under categorization of recalled from ER triage doctor by RN are reflective of an initial nursing assessment, however, is not reflective of my full history and physical exam that was personally taken and clarified. Consequentially, this preceding description of symptoms, which may include the patient's categorized chief complaint in the EMR, do not reflect my personal clinical impression, and the ultimate description of history of present illness and patient stated complaints should be deferred to this section of the note. Unless stated otherwise or congruent with this section of the note, additional signs, symptoms, or incongruence should be interpreted as inaccurate with my clinical impression. Related Data Previous Rx's ?Medication ?Instructions ?Recorded ibuprofen 800 mg tablet 800 mg PO TID PRN pain #30 tabs 11/08/24 norethindrone 1.5 mg-ethinyl 1 tab PO DAILY #84 tabs 02/25/25 estradiol 30 mcg(21)/iron 75 mg(7) tablet ( FE .03/27 (28)) Allergies Allergy/AdvReac Type Severity Reaction Status Date / Time No Known Allergies Allergy Verified 08/14/24 09: [facility] Disclaimer: The information contained in this section may have been updated after the patient was seen, as this information can be updated by other users. Medical History Anxiety No significant family history Surgical History History of placement of ear tubes Social History (Updated 09/21/24 @ 19:32 by Tricia Whalen APRN) Smoking Status: Never smoker second hand exposure: No alcohol intake: never substance use type: denies use current occupational status: employed Travel in the last 8 weeks?: None housing: house marital status: single Have you lived/traveled outside US in past 30 days?: No Contact w/someone who lives/traveled outside US past 30 days?: No Exposure to someone with infectious disease in past 14 days?: No Do you have a fever (greater than 100.4 F or 38 C)?: No Have you tested positive for COVID-19?: No Exposed to someone with COVID-19 in past 14 days?: No Do you have a sore throat?: No Do you have a cough?: No Do you have any weakness?: No Do you have any diarrhea?: No Are you experiencing any unusual bleeding?: Yes Do you have any muscle aches/pain?: No Do you have any abdominal pain?: No Are you experiencing loss of taste or smell?: No Other Medical History Have you received the Pneumonia Vaccine: No ROS Obtained: Yes All systems reviewed & no additional complaints except as documented Physical Exam General General appearance: alert, anxious, in distress and obese Head Head exam: atraumatic and normocephalic Eye Eye exam: Present normal appearance, PERRL and EOMI Neck Neck exam: Present normal inspection, full ROM and trachea midline Respiratory Respiratory exam: Absent respiratory distress, wheezes, stridor, accessory muscle use or prolonged expiratory phase Cardiovascular Cardiovascular exam: Present normal rhythm, tachycardia and other (Pulses equal symmetric in upper and lower extremities) Abdominal Exam Abdominal exam: Present soft; Absent distention, tenderness or pulsatile mass Extremities Exam Extremities exam: Absent edema Neurological Exam Neurological exam: Present alert, oriented X3 and CN II-XII intact; Absent motor sensory deficit Skin Skin exam: Present warm and dry; Absent diaphoresis or erythema Medical Decision Making Medical Records Medical records reviewed: Yes I reviewed the patient's medical records. Screening: Per USPSTF and CDC recommendations, given the prevalence of disease in our region, it is our hospital?s policy to screen for HIV and viral Hepatitis for all patients aged 18 and over and those with ongoing risk factors. Parminder Inquiry Pt receiving controlled substance: No Parminder was queried for this patient: No Vital Signs: 02/25/25 07:59 02/25/25 08:01 Temperature 98.2 F Temperature Source Oral Pulse Rate 123 H Pulse Rate [Right Brachial] 119 H Respiratory Rate 20 Blood Pressure 147/107 H Blood Pressure [Right Arm] 152/102 H Blood Pressure Mean [Right Arm] 118 Blood Pressure Source [Right Arm] Automatic Cuff Blood Pressure Position [Right Arm] Supine 02 Sat by Pulse Oximetry 98 98 Oxygen Delivery Method Room Air Room Air Lab Data Lab Results 02/25/25 08:14: Urine HCG, Qual Negative Orders (Tests/Meds): ORDERS Category Date Time Status Urine , HCG Qual. Stat Lab 02/25/25 08:14 Completed Medical Decision Narrative: 20-year-old female presenting with vaginal bleeding. She states that she last had her menstrual period January 23, 2025. States that she has been intermittently spotting throughout January 2025, started bleeding today, 02/25 approximately 4 weeks after her last period. Lower abdominal cramping. She states it feels exactly like her previous periods. No lightheadedness, chest pain, shortness of breath, weakness, hemorrhaging. Has only saturated 1 pad over the past few hours. No blood thinners. States that she is supposed to have follow-up with [facility], but does not have that follow-up until the end of March, so came in for further evaluation. Not currently on control, never been on control, there is a chance she may be and is sexually active. History was obtained via conversation with patient. On arrival, patient hemodynamically stable, alert, [oriented x4, ][appropriate, ]GCS [15], moving all extremities spontaneously, pupils equal and reactive to light. Full physical exam performed and significant for obese female in no acute distress. Tachycardic, but she also appears anxious. No evidence of pallor, good capillary refill. Abdomen is benign. Differential includes normal menstrual period, metromenorrhagia, fibroid, polyp, endometriosis, , ectopic , among others. Patient placed on continuous cardiac monitoring and continuous pulse ox with initial blood pressure [], heart rate [], saturation []. [Independent interpretation of EKG shows] []. Patient was given [] for symptomatic management[ and correction of underlying abnormalities]. Workup independently interpreted and significant for []. On independent interpretation of imaging, []. See radiology read for full review of final results. [Nexus/Cub[place] CT head/heart/[id number]/Wells/PERC/Age adjusted/YEARS/MELD]. [] was considered, but deemed unnecessary due to []. On reevaluation, [additional tests/treatment]. [Tissue perfusion reassessment performed within 3 hours, patient mentating, following commands, good capillary refill and hemodynamically stable.] [Consultants] [obs] Given patient presentation, workup, history, this most likely represents []. Less likely []. [SDH] Training Developer disclaimer Much of this encounter note is an electronic manager skilled spoken language to printed text. Electronic manager skilled of the spoken language may permit errors. Although I have reviewed the note, some errors may still exist. Critical Care Critical Care Time Critical Care Time: No
[2025-02-25 08:26] LABS: Urine Pregnancy, HCG Qual. Negative (Negative)
[2025-02-25 09:03] VITALS: BP 142/80; PULSE 99; RESP 18; TEMP 36.8; O2SAT 98
== END 2025-02-25 09:09 | disposition home or self-care (01) ==
PROVIDERS: Emergency Provider Emergency Medicine; PCP Nurse Practitioner Family
DX: N93.9 Abnormal uterine and vaginal bleeding, unspecified (principal)
CPT/HCPCS: 81025; 99283

== ENCOUNTER 2025-08-06 19:25 | Outpatient (CLI) | payer OTHER, SELFPAY ==
--- NOTE | 2025-08-06 19:35 | XR_ITS ---
PROCEDURE INFORMATION: Exam: XR Chest Exam date and time: 08/06/2025 7:25 PM Age: 20 years old Clinical indication: Cough TECHNIQUE: Imaging protocol: Radiologic exam of the chest. Views: 2 views. Total images: 2 COMPARISON: CR XR CHEST 2V 07/07/2024 8:27 PM FINDINGS: Lungs: Atelectatic and/or early infiltrative changes left lower lobe. Pleural spaces: No pleural effusion. No pneumothorax. Heart/Mediastinum: No cardiomegaly. Diaphragm: There is nonspecific elevation of the right hemidiaphragm. Bones/joints: Unremarkable. IMPRESSION: Atelectatic and/or early infiltrative changes left lower lobe.
== END 2025-08-06 23:59 | disposition home or self-care (01) ==
LOC: RAD 19:26
PROVIDERS: Visit Provider Student in an Organized Health Care Education/Training Program
DX: R91.8 Other nonspecific abnormal finding of lung field (principal); R05.9 Cough, unspecified
CPT/HCPCS: 71046